=== PATIENT | female | born 1945 | race Caucasian/White ===

== ENCOUNTER 2023-06-16 06:04 | Day surgery (SDC) | payer MEDICARE, BC, SELFPAY ==
[2023-06-16] VITALS (12 sets, daily range): BP systolic 135–186; BP diastolic 76–96; BMI 31.6
[2023-06-16] MEDS: NSS 235 ML IV (06:33)
--- NOTE | 2023-06-16 08:55 | CONSULT.STRU ---
Addendum entered and electronically signed by RADHA Spicer 07/02/23 08:21:
Patient discussed in the shared decision making meeting by the Structural Heart Team. Team feels that the appropriate treatment for her severe, symptomatic is TAVR via a right transfemoral approach utilizing a 26mm S3 valve. Will call to update
patient of discussion and scheduled her TAVR procedure.
Original Note:
Consultation
-
Date/Time Consultation Requested: 06/16/2023 @ 8015
Date/Time Consultation Performed: 06/16/2023 @ 0915
Requesting Provider: Agapito Eli MD
Performing Provider: RADHA Kenny
Reason for Consultation: /TAVR
Patient History
Physicians
Family Physician: Gene Choe DO
Outpatient Manager Of Digital: Madiha Almaguer MD
Primary Manager Of Digital: Madiha Almaguer MD
History of Present Illness
Mrs. Erwin is a very pleasant 77 yof that presents with severe symptomatic aortic stenosis associated with DUEÑAS. Patient states she noticed a progression of her DUEÑAS with minimal exertion beginning in the fall of 2022. 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 She remains active with her horses. However, she states that her DUEÑAS has gotten worse. Her echocardiogram from 06/16/2023 is notable for an aortic valve P/M 74/42, STACI 0.79, DI 0.26, EF 70-75%,
mild AI, mild to moderate MR, RVSP 45. Discussed the pathophysiology and treatment options of including SAVR and TAVR. Explained the evaluation process comprising of CT scan, CT surgical consult, dental clearance, and a heart team discussion.
TAVR booklet, contact information, appointments, and prescriptions given to patient. Allowed for and answered questions at bedside.
Past Medical History
Past Medical History: Arrhythmias (frequent PVCs), Covid-19 (05/17/2023), DUEÑAS, HTN, Hypercholesterolemia, Valvular Disease (aortic stenosis) and Other (Hep. C from a blood transfusion, ascending aorta Dilation (4.[address] scan from 01/05/2023),
osteopenia, hx of palpitatoins)
Past Surgical History
Past Surgical History: Appendectomy, Hysterectomy (DAMON), Orthopedic (bilateral knee replacement) and Tonsilectomy
Dental History
[facility]. Patient has not been to the dentist since before -. Instructed Mrs. Erwin that she will need dental clearance prior to valve replacement. She verbalized understanding. Dental clearance form faxed to dentist.
Family History
Mother: N/A
Father: N/A
Family Medical History: Hypertension
Social History
Alcohol: Occasional
Drug: None
Tobacco: Non-Smoker
Personal:
Living: With Spouse
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
Allergies
Allergy/AdvReac Type Severity Reaction Status Date / Time
nitrofurantoin Allergy Nausea / Verified 06/16/23 06:20
[From Macrobid] Vomiting
Penicillins Allergy Rash Verified 06/16/23 06:20
Home Medications
Medication Instructions Recorded Confirmed Type
aspirin 81 mg tablet 81 mg PO DAILY 06/16/23 06/16/23 History
cefuroxime axetil 500 mg tablet 500 mg PO BID 06/16/23 06/16/23 History
cetirizine 10 mg tablet (Zyrtec) 10 mg PO DAILY 06/16/23 06/16/23 History
fluticasone propionate 50 1 spray intranasal DAILY 06/16/23 06/16/23 History
mcg/actuation nasal
spray,suspension
metoprolol succinate 50 mg 50 mg PO DAILY 06/16/23 06/16/23 History
tablet,extended release 24 hr
STS%
STS %: 2.68
Review of Systems
-
History Source: Patient
General: Reports No Symptoms
HEENT: Reports No Symptoms
Respiratory: Reports SOB and DUEÑAS
Cardiac: Reports Palpitations
Abdomen/GI: Reports No Symptoms
: Reports No Symptoms
Neurological: Reports No Symptoms
Vascular: Reports No Symptoms
Physical Exam
Vital Signs
Temp 98.1 F 06/16/23 06:33
Pulse 66 06/16/23 08:30
Resp Rate 20 06/16/23 06:33
Blood pressure 176/96 06/16/23 08:28
Blood pressure extremity used: Right upper arm 06/16/23 06:33
Position: Sitting 06/16/23 06:33
MAP (cuff-Lucita Monitor) 123 06/16/23 08:28
SaO2 97 06/16/23 08:30
Can the patient verbally communicate their pain? Yes 06/16/23 06:33
Actual Weight 78.2 kg 06/16/23 06:19
Body Mass Index (BMI) 31.6 06/16/23 06:19
Labs
06/02/2023:
HH: 13.2/41.9
Plt: 287K
BUN/Creatinine: 12/0.7
GFR>60
Diagnostic Studies
01/05/2023 Non-contrast Chest CT:
Ascending aortic aneurysm measuring up to 4.4 cm
Otherwise no other significant interval change
03/10/2023 Echo:
EF 70-75%
moderate left LVH w/ septal prominence
normal RV size and systolic function
normal LA vol index (16.2 mL/m2)
aortic valve is tricuspid and calcified. Severe AV stenosis, mild AI,
AoV samreen 4.29. P/M 73.5/41.7, STACI 0.79. DI 0.26
Assuming (R) atrial pressure 8mmHg, estimated RVSP 44.5
Mild to moderate MR
Ascending Aorta is dilated (4.14cm)
Study done in NSR
06/10/2023 EKG: NSR RBBB
06/16/2023 Cardiac Cath:
HEMODYNAMIC FINDINGS (mmHg):
LV(s/d,EDP): Valve not crossed
Ao(s/d,m): 144/84, 108
ANGIOGRAPHIC FINDINGS:
Single-plane Left Ventriculography in SHAW Projection: Valve not crossed.
Coronary Angiography:
Dominance: Right
Left Main: Normal
Left Anterior Descending: The left anterior descending artery is a relatively large caliber vessel that is diffusely calcified throughout its proximal and midportion with nonobstructive moderate luminal irregularities throughout.� All vessels
have normal distal flow.
Left Circumflex: The left circumflex is a extremely large caliber vessel that gives rise to a giant branching obtuse marginal branch that has mild nonobstructive luminal irregularities with normal flow.� The left circumflex is also heavily
calcified in the midportion without stenotic disease.
Right Coronary: The right coronary artery is a heavily calcified vessel within the AV groove.� There is a focal smooth mid 60 to 70% proximal stenosis followed by a irregular 40% stenosis just before the acute margin.� The distal vessel is widely
patent with normal flow and a large caliber posterior descending artery and smaller PLV branch system.
Fluoroscopy Time (min): 4.4
Radiation Dose (mGy): 274
DAP (Gy.cm2): 18
Closure device: None.� A TR band was applied for hemostasis at the right wrist.
Complications: None.
ASSESSMENT:
1: Single-vessel coronary artery disease with diffuse calcification in both left and right coronary circulations.� Given the borderline angiographic significance of the RCA disease, I feel this should be treated medically and plan to proceed with
TAVR evaluation.
CONCLUSIONS and RECOMMENDATIONS:
1: Medical therapy for coronary artery disease.
2: Proceed with TAVR evaluation.
Exam
General: Well Developed, Well Nourished, No Apparent Distress and Comfortable
HEENT: Normocephalic and Moist Mucous Membranes
Neck: Trachea Midline
Respiratory: Clear
Cardiac: Regular Rhythm and Murmur (IV/ JOSE GUADALUPE)
GI: Soft and Non Distended
Rectal: Deferred by Provider
Skin: Warm and Dry
Neuro: Awake, Alert, Oriented and AO x 3
Extremities: Pulses (Strong bilateral)
Psych: Calm
Assessment / Plan
-
Aortic stenosis
Continue TAVR evaluation
Trend creatinine after contrast (Rx given)
TAVR CT scan (06/28)
CT surgical consult (MPT 06/22)
Frailty testing and KCCQ12 at consult
Dental clearance (form faxed)
Continue aspirin
Heart team discussion.
Data Reviewed
-
EKG: Tracing Personally Visualized and interpreted (NSR with RBBB) and Report Reviewed by me
Biomedical Equipment Tech: Report Reviewed by me
Echo: Report Reviewed by me
CT Scan: Report Reviewed by me (non-con chest)
Labs: Labs Reviewed by me
Old Records: Reviewed (Dr. Almaguer's OV)
Total Time Spent with Patient (in minutes): 45
[2023-06-16] MEDS: NSS 1000 IV (09:27)
--- NOTE | 2023-06-16 09:44 | ITS.CL.CATH ---
[employer] - Catheterization
Cardiac Catheterization
Procedure Report:
LEFT HEART CATHETERIZATION
Date of Procedure: June 16, 2023
Procedures performed:
1: Coronary angiography
Primary Care Physician: Dr. Gene Choe
Primary Plasma Table Operator: Dr. Madiha Mason
INDICATION: The patient is a 77-year-old woman with a past medical history significant for hypertension and progressive severe aortic valvular stenosis who has experienced increasing exertional dyspnea over the past 6 months. Echocardiogram
performed on March 08, 2023 showed a mean gradient of 42 mmHg with a valve area of 0.79 cm� and a aortic valve dimensionless index of 0.26 with mild to moderate mitral regurgitation and normal LV size and systolic function. She is referred for
coronary angiography in preparation for aortic valve intervention.
ACCESS: The patient was prepped and draped in usual sterile fashion. A 5 Faroese sheath was placed in the right radial artery using the Seldinger over the wire technique.
HEMODYNAMIC FINDINGS (mmHg):
LV(s/d,EDP): Valve not crossed
Ao(s/d,m): 144/84, 108
ANGIOGRAPHIC FINDINGS:
Single-plane Left Ventriculography in SHAW Projection: Valve not crossed.
Coronary Angiography:
Dominance: Right
Left Main: Normal
Left Anterior Descending: The left anterior descending artery is a relatively large caliber vessel that is diffusely calcified throughout its proximal and midportion with nonobstructive moderate luminal irregularities throughout. All vessels have
normal distal flow.
Left Circumflex: The left circumflex is a extremely large caliber vessel that gives rise to a giant branching obtuse marginal branch that has mild nonobstructive luminal irregularities with normal flow. The left circumflex is also heavily calcified
in the midportion without stenotic disease.
Right Coronary: The right coronary artery is a heavily calcified vessel within the AV groove. There is a focal smooth mid 60 to 70% proximal stenosis followed by a irregular 40% stenosis just before the acute margin. The distal vessel is widely
patent with normal flow and a large caliber posterior descending artery and smaller PLV branch system.
Fluoroscopy Time (min): 4.4
Radiation Dose (mGy): 274
DAP (Gy.cm2): 18
Closure device: None. A TR band was applied for hemostasis at the right wrist.
Complications: None.
ASSESSMENT:
1: Single-vessel coronary artery disease with diffuse calcification in both left and right coronary circulations. Given the borderline angiographic significance of the RCA disease, I feel this should be treated medically and plan to proceed with
TAVR evaluation.
CONCLUSIONS and RECOMMENDATIONS:
1: Medical therapy for coronary artery disease.
2: Proceed with TAVR evaluation.
Chanell Eli M.D.
Copy to: Dr. Gene Choe
== END 2023-06-16 11:12 | disposition home or self-care (01) ==
LOC: CATH 06:04
PROVIDERS: ATTENDING PHYSICIAN Internal Medicine Interventional Cardiology; OTHER PHYSICIAN Internal Medicine Cardiovascular Disease; PRIMARYCARE PHYSICIAN Student in an Organized Health Care Education/Training Program
DX: I25.10 Atherosclerotic heart disease of native coronary artery without angina pectoris (principal); I08.0 Rheumatic disorders of both mitral and aortic valves; R06.09 Other forms of dyspnea; I10 Essential (primary) hypertension; E78.00 Pure hypercholesterolemia, unspecified; Z86.16 Personal history of COVID-19; Z79.82 Long term (current) use of aspirin
CPT/HCPCS: 93454; C1769; C1894; Q9967

== ENCOUNTER → 2023-06-28 09:12 | Outpatient (REF) | payer MEDICARE, BC, SELFPAY | LOC: RAD 09:12 | PROVIDERS: ATTENDING PHYSICIAN Nurse Practitioner Acute Care; FAMILY PHYSICIAN Student in an Organized Health Care Education/Training Program | DX: I35.0 Nonrheumatic aortic (valve) stenosis (principal) | CPT/HCPCS: 74174; 75572; Q9967 ==

== ENCOUNTER 2023-07-22 07:31 | Inpatient (IN) | payer MEDICARE, BC, SELFPAY ==
[2023-07-15 08:58] VITALS: BMI 32.2
[2023-07-15 09:13] LABS: % Basophils 0.9 % (0-2); % Eosinophils 3.8 % (0-6); % Immature Granulocytes 0.2 % (0-0.5); % Lymphocytes 29.8 % (20.5-51.1); % Monocytes 6.6 % (1.7-9.3); % Neutrophils 58.7 % (42.2-75.2); Absolute Basophils 0.1 10^3/uL (0-0.2); Absolute Eosinophils 0.2 10^3/uL (0-0.7); Absolute Lymphocytes 1.9 10^3/uL (1.2-3.4); Absolute Monocytes 0.4 10^3/uL (0.1-0.6); Absolute Neutrophils 3.7 10^3/uL (1.4-6.5); Hemoglobin 13.3 g/dL (12.0-16.0); Mean Corp Hgb Conc. 33.3 g/dL (33.0-37.0); Mean Corpuscular Hgb 28.7 pg (27.0-31.0); Mean Corpuscular Volume 86.4 fL (81.0-99.0); Mean Platelet Volume 8.9 fL (7.4-10.4); Nucleated Red Blood Cells % 0 %; Platelet Count 242 10^3/uL (130-400); Red Blood Cell Count 4.63 10^6/uL (4.20-5.40); Red Cell Dist. Width 13.2 % (11.5-14.5); White Blood Cell Count 6.3 10^3/uL (4.8-10.8)
[2023-07-15 09:23] LABS: APTT 27.3 Sec (23.4-35.0); INR 1.08
[2023-07-15 09:34] LABS: NT-proBNP 285 pg/ml
[2023-07-15 09:59] LABS: ALT (SGPT) 18 U/L (0-35); AST (SGOT) 21 U/L (14-36); Albumin 4.3 g/dl (3.5-5.0); Alkaline Phosphatase 76 U/L (38-126); Blood Urea Nitrogen 16 mg/dl (7-17); Calcium 9.6 mg/dl (8.4-10.2); Carbon Dioxide 27 mmol/L (22-30); Chloride 101 mmol/L (98-107); Estimated Creatinine Clearance 56 ml/min; Glucose 102 mg/dl (70-99); Potassium 4.8 mmol/L (3.5-5.1); Sodium 136 mmol/L (135-145); Total Bilirubin 0.6 mg/dl (0.2-1.3); Total Protein 7.1 g/dl (6.3-8.2); eGFR > 60.00
--- NOTE | 2023-07-15 10:54 | CM ---
CM met w/ patient during PATs for planned TAVR, 07/21.
Pt. reports that she resides w/ spouse in a private, 2 story home w/ 1 ZAIDA. 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 She has RW, SPC at home from her knee surgery but does not use.
Pt. travels to [place] every weekend to their vacation home/to take care of their horses (2). 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
Reviewed pre and post operative routines.
Soap, shower instructions and TAVR booklet provided.
Discussed post op restrictions to include lifting, driving.
Reviewed post op MD appointment, Cardiac Rehab and visit from CT Transitional Care RN/patient agreeable.
Plan for TAVR, 07/21.
Anticipated DC plan is to return to home w/ CT Transitional Care RN.
CM to cont. to follow.
[2023-07-15 11:02] LABS: Urine Albumin Negative (Neg - Trace); Urine Bilirubin Negative (Negative); Urine Character Clear (Clear); Urine Color Yellow; Urine Glucose Negative (Negative); Urine Ketone Negative (Negative); Urine Leukocyte 2+ (Negative); Urine Nitrite Negative (Negative); Urine Occult Blood Negative (Negative); Urine Urobilinogen Negative (Neg - 1+)
[2023-07-15 11:21] LABS: Urine Red Blood Cell 0-2 /HPF (0-2); Urine Yeast Few (Negative)
--- NOTE | 2023-07-15 12:34 | HPS.HSE ---
Family Physician
-
Family Physician: Gene Choe,
Chief Complaint
-
DUEÑAS
History of Present Illness
Mrs. Erwin is a very pleasant 77 yof that presents with severe symptomatic aortic stenosis associated with DUEÑAS. 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 She remains active with her horses. However, she states that her DUEÑAS has gotten worse. Her echocardiogram from 06/16/2023 is notable for an aortic valve P/M 74/42, STACI 0.79, DI 0.26, EF 70-75%,
mild AI, mild to moderate MR, RVSP 45. She has been evaluated by the heart team and recommended for Transfemoral TAVR. TAVR scheduled for 07/22/[address] Lim and Odilon.
Assessed in preadmission testing and reviewed risks of the procedure including stroke, vascular injury, and ppm. She will arrive to the [facility] atrium @ 0730 and take 81 mg aspirin FINANCIAL ADVISOR. Informed Mrs. Erwin she will receive a phone call on Wednesday
07/20 to confirm time and location of arrival. Allowed for and answered questions.
Medical History
Past Medical History
Past Medical History: Reports HTN and Valvular Disease (aortic stenosis)
Additional Past Medical History:
HLD, osteopenia, COVID (05/17/2023), RBBB, cystocele, lumbar spine fx, hepatitis C, migraines, constipation, deviated septum,
Past Surgical History: Reports Appendectomy, Gynocological (hysterectomy), Orthopedic (bilateral TKR) and Tonsilectomy
Social History
Tobacco: Non-smoker
Alcohol: Occasional
Drug: None
Personal:
Living: With Family
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
Family History
Family History: Not pertinent
Allergies / Home Medications
Allergies reflects when Allergies were last updated in [employer].
Home Medications with original date entered in [employer]
Allergy/Medication List:
adhesive, macrobid, PCN
Review of Systems
-
History Source: Patient
A 12 point ROS was completed and negative except as noted: Yes
Respiratory: Reports Cough and Other (DUEÑAS)
Physical Exam
Physical Exam
General: Well Developed and Well Nourished
HEENT: NormoCephalic
Respiratory: Clear
Cardiac: Regular Rhythm and Murmur (III/ JOSE GUADALUPE)
Breast: Deferred by me
GI: Non Tender
Rectal: Deferred by Provider
Genito-urinary: Deferred by me
Musculoskeletal: No Edema
Skin: Warm and Dry
Neuro: Awake, Alert, Oriented and AO x 3
Psych: Calm
Laboratory Results
-
07/15/23 08:46
07/15/23 08:46
Laboratory Results
PT 14.0 Sec (11.4-14.6) 07/15/23 08:46
INR 1.08 07/15/23 08:46
APTT 27.3 Sec (23.4-35.0) 07/15/23 08:46
Total Bilirubin 0.6 mg/dl (0.2-1.3) 07/15/23 08:46
AST 21 U/L (14-36) 07/15/23 08:46
ALT 18 U/L (0-35) 07/15/23 08:46
Alkaline Phosphatase 76 U/L (38-126) 07/15/23 08:46
Data Reviewed
-
Diagnostic Radiology: Report Reviewed by me (CXR)
CT Scan: Report Reviewed by me and Discussed with Physician (discussed TAVR CT scan with the heart team)
Medical Tests (Nuc Med, Echo, EKG etc): Report Reviewed by me and Discussed with Physician (Reviewed echo and cardiac catheterization with the heart team)
Lab Data: Labs Reviewed by me
Old Records: Reviewed
Impression/Plan
-
IMPRESSION/ PLAN: Aortic stenosis
TF TAVR planned for 07/21- 26mm S3 via right TF--Drs. Lim and Odilon
Continue aspirin
POD#06/01 echocardiogram
Cardiac rehab consult.
[2023-07-15 13:15] LABS: Glycohemoglobin (HgbA1c) 5.9 % (4.0-5.6)
[2023-07-22] VITALS (17 sets, daily range): BP systolic 87–169; BP diastolic 57–91; BMI 31.1
--- NOTE | 2023-07-22 08:48 | ITS.CL.TAVR ---
Electric Furnace Operator - TAVR Report
TAVR PRocedure
Procedure Report:
TRANSCATHETER AORTIC VALVE REPLACEMENT
Date of Procedure: July 22, 2023
Referring: Chanell Eli
Primary Care Physician: Dr. Gene Choe
Primary Press Feeder Broomcorn: Dr. Madiha Mason
Operators: Drs. Roxann Lim and Anthony Donald
PROCEDURE PERFORMED:
1. Successful placement of 26 mm Kimble Suzette S3 aortic valve via right common femoral approach.
PREPROCEDURE NYHA CLASS: II
DESCRIPTION OF PROCEDURE: The patient was referred for assessment of severe symptomatic aortic stenosis and following a comprehensive evaluation it was felt that transcatheter aortic valve replacement (TAVR) would be the most appropriate treatment.
Informed consent was obtained prior to the procedure. A 'time-out' was called and the procedural plan was verbally confirmed by anesthesia, surgery, perfusion, and microbiology lab analyst staff.
Arterial and venous access site were obtained in the left common femoral artery and vein using ultrasound guidance and micropuncture technique. 6 Fr. sheaths were inserted.
A 5 Fr. transvenous pacing wire was advanced to the right ventricle where excellent pacing thresholds were obtained.
A 5 Fr. pigtail catheter was then advanced to the proximal ascending aorta / right aortic cusp where angiography was performed in multiple angles to define the co-planar angle that was most appropriate valve deployment (GABONESE 36/ BAG END SEWER 6).
Ultrasound guidance was then used to obtain arterial access in the right common femoral artery and a 4 Fr. micropuncture sheath was inserted. Angiography was performed and the arteriotomy site appeared appropriate for preclosure with two Perclose
devices. An 8 Fr sheath was then inserted back into the common femoral artery over a J-tipped guidewire. An AL1 catheter was positioned in the proximal descending aorta. An Extra Stiff 0.035' J-tip wire was inserted to provide extra-support to
facilitate the Kimble eSheath delivery. The 16 Fr. Kimble eSheath was advanced in the descending thoracic aorta through the right common femoral.
An AL1 catheter was advanced through the Kimble eSheath over a 0.035' J-tip guide wire. The AL1 catheter was positioned just above the aortic valve. A 0.035' Straight tip wire probed the aortic valve and crossed the stenotic leaflets. The AL1
was then advanced to the mid left ventricle. Invasive LV measurement was obtained with mildly elevated at 18 mmHg. An Amplatz Extra-stiff wire with a generous curved tip was then positioned in the left ventricular apex. A 26 mm Kimble Suzette S3
valve was brought to the table and the orientation of the valve on the balloon delivery system was confirmed by all operators. The Suzette S3 valve was advanced through the eSheath and into the proximal descending thoracic aorta. The Suzette S3
valve was centered on the delivery balloon and the entire system was retroflexed as it crossed the aortic arch. The Suzette S3 delivery system was then advanced across the stenotic valve and the 26 mm Suzette S3 valve was deployed during rapid
pacing. The valve deployment was uneventful. Transthoracic echocardiographic images post valve deployment revealed minimal aortic insufficiency with excellent position of the aortic prosthesis.
The Kimble balloon and delivery system were then removed. The Kimble sheath was removed and the Perclose knots were advanced to the arteriotomy site resulting in excellent hemostasis.
Fluoro Time: 9.3 min, Dose: 277.97 mGy, DAP : 31.4 Gy.cm2
CONCLUSIONS:
1. Severe symptomatic aortic stenosis. Successful deployment of a 26 mm Suzette S3 valve with minimal aortic insufficiency post procedure
2. Successful arteriotomy closure with 2 Perclose devices.
3. Mildly elevated LVEDP of 18 mmHg.
Copy to: Chanell Eli, Dr. Gene Choe, Dr. Madiha Mason
Roxann Lim MD, [facility], [facility]
[2023-07-22] MEDS: VANCOCIN 200 IV (09:11)
--- NOTE | 2023-07-22 09:19 | W.CVOR.SURPR ---
CVOR Surgeon Immed Pre Op
-
I have examined this patient prior to performance of the scheduled procedure.
The patient's condition is unchanged from the time of the dictated/written History and
Physical and the patient is able to undergo the scheduled procedure.
--- NOTE | 2023-07-22 10:23 | CM ---
Reviewed chart. Mrs. Erwin is in the operating room. Prior to admission she resides with her spouse in a two story home with one step to enter. Prior to admission she was independent with ambulation and adls. She has a walker and single point
cane at home. She has a prescription plan and uses [facility]. Medical work-up in progress. The discharge plan is to return home with her spouse when medically stable.
[2023-07-22 10:53] LABS: ACT-LR - POC 273 Seconds (116-155)
--- NOTE | 2023-07-22 11:16 | W.IMMPOSTOP ---
Surgical Immed Post Op Note
-
Dictated: [id number]
STRUCTURAL HEART PROCEDURE NOTE: TAVR
Preoperative Dx:
Severe (P/M: 74/42, STACI 0.79)
HTN/HLD
Ascending aortic dilation
RBBB
Hep C
Osteopenia
Migraines
Constipation
Cystocele
Deviated septum
COVID
Postoperative Dx:
Same
Procedures:
1) L LOANS CONSULTANT access w/ tactile, U/S, and fluoroscopic guidance, micropuncture technique, 6Fr sheath
2) Attempted L CFV access w/ inadvertent arterial access w/ micropuncture needle x 2, manual pressure held
3) R LOANS CONSULTANT access w/ tactile, U/S, and fluoroscopic guidance, micropuncture technique, limited angiography x 2, 8Fr dilator placement
4) Perclose placement x 2 into R LOANS CONSULTANT, 8Fr sheath placement
5) L CFV access w/ U/S and fluoroscopic guidance, micropuncture technique, 6Fr sheath placement
6) Placement of temporary TV pacer w/ threshold testing
7) Placement of pigtail in RCC w/ limited aortography & confirmation of co-planar valve deployment angles
8) Placement of Kimble E-sheath via R LOANS CONSULTANT
9) Wire purchase across stenotic AV
10) R TF TAVR w/ placement of 26mm TITO 3
11) Completion aortography
12) Completion TTE (mean gradient 4mmHg, trace AI)
13) Removal of valve delivery system/Kimble E-sheath w/ R LOANS CONSULTANT mgmt w/ perclose sutures x 2; manual pressure
14) Completion R ileofemoral angiography
15) Limited L ileofemoral angiography w/ removal of L LOANS CONSULTANT sheath w/ mgmt w/ 6Fr angioseal; manual pressure
16) Removal of pacing wire and L CFV sheath w/ manual pressure
Receptionist Nurse:
Dr. Roxann Lim
Cardiac Surgeon:
Dr. Anthony Donald
Anesthesia:
MAC & local to B/L groins
Implants:
Perclose sutures x 2
6Fr angioseal x 1
Kimble Lifesciences, 26mm Model [id number], SN [id number]
Complications:
None
Cath Data:
Start: 1014hrs, Deploy: 1054hrs, End: 1113hrs
FT: 9.3min, mGy: 277.97, DAP: 31.4287, Contrast: 87mL
Post-TTE: mean gradient 4mmHg, trace AI
Condition:
Stable/guarded to recovery
--- NOTE | 2023-07-22 12:02 | W.PN.UPDATE ---
Update Note
Progress Note Update
Reviewed Ms. Erwin with the heart team in the preTAVR SDM meeting to confirm a 26 mm S3 via right transfemoral access. Patient will resume aspirin post TAVR. LVEDP 18mmHg. #26mm S3 (serial# [id number]) successfully deployed via right transfemoral
access. Post implant MG 4 mmHg.
--- NOTE | 2023-07-22 13:30 | PTCARENOTE ---
Received pt post TAVR. VSS. Pt denies any chest or groin pain. B/L groin sites clean and intact. Pt c/o back pain from extended bed rest. Meds as ordered.
[2023-07-22] MEDS: STERILE WATER FOR INJECTION 10 ML IV ×2 (13:35)
[2023-07-22] MEDS: TYLENOL 650 MG PO (13:35)
[2023-07-22] MEDS: AZACTAM 2000 MG IV ×2 (13:35)
[2023-07-22] MEDS: TUMS EX (EXTRA STRENGTH) CHEWABLE 2 TABLET PO (21:39)
[2023-07-23 03:07] LABS: Hematocrit 36.1 % (37.0-47.0); Hemoglobin 12.2 g/dL (12.0-16.0); Mean Corp Hgb Conc. 33.8 g/dL (33.0-37.0); Mean Corpuscular Hgb 28.7 pg (27.0-31.0); Mean Corpuscular Volume 84.9 fL (81.0-99.0); Mean Platelet Volume 8.9 fL (7.4-10.4); Platelet Count 169 10^3/uL (130-400); Red Blood Cell Count 4.25 10^6/uL (4.20-5.40); Red Cell Dist. Width 13.2 % (11.5-14.5)
[2023-07-23 03:15] LABS: Blood Urea Nitrogen 15 mg/dl (7-17); Calcium 9.5 mg/dl (8.4-10.2); Carbon Dioxide 26 mmol/L (22-30); Chloride 101 mmol/L (98-107); Estimated Creatinine Clearance 73 ml/min; Glucose 112 mg/dl (70-99); Potassium 4.5 mmol/L (3.5-5.1); Sodium 134 mmol/L (135-145); eGFR > 60.00
[2023-07-23 03:32] VITALS: BP 158/82
[2023-07-23 03:38] VITALS: BMI 31.4
--- NOTE | 2023-07-23 03:59 | PTCARENOTE ---
Patient ambulates self in room w/out difficulty. Pt AAOx3 and neuro WNL. Right groin dressing w/ a small ooze, new dressing applied this AM. B/l groin sites soft and no hematoma noted. Bilateral pedal pulses palpable. Tele remains SR w/ BBBC.
Denies any chest pain. Patient aware of POC, call hylton in reach.
--- NOTE | 2023-07-23 05:52 | W.PN.CT ---
Addendum entered and electronically signed by Anthony Donald MD 07/23/23 08:22:
I saw and examined the patient.
The PA's note was reviewed and I agree with the note.
Comment:
POD#1 s/p TF TAVR
Doing well.
- Echocardiogram today
- Home medications
- ASA only anticoagulation
- D/C planning for likely home later today
Original Note:
Today's Communication / Plan
-
-pod #1
-no issues overnight
-nsr 70s-80s, no gurpreet or pauses overnight
-pre-existing RBBB, new 1st degree AVB (resolved)
-Echo today
-current meds (ASA, Toprol)
-encourage IS, OOB
-possible d/c today
Assessment / Plan
-
- Severe symptomatic - s/p R TF TAVR w/ placement of 26mm TITO 3 on 07/22/23, pod #1
-Post-TTE: mean gradient 4mmHg, trace AI
- HTN/HLD
- Ascending aortic dilation
- Pre-existing RBBB
- Hep C
- Osteopenia
- Migraines
- Constipation
- Cystocele
- Deviated septum
- COVID
- Acute postop transient 1st degree AVB- resolved
Discussed patient care with: Nursing and Care Team
Subjective
Procedure
- s/p R TF TAVR w/ placement of 26mm TITO 3 on 07/22/23
-
Date of Service: July 23, 2023
Objective Data
-
PT 14.0 Sec (11.4-14.6) 07/15/23 08:46
INR 1.08 07/15/23 08:46
APTT 27.3 Sec (23.4-35.0) 03/14/24 08:46
Vital Signs
Vital Signs
Temp Pulse Resp BP Pulse Ox
98.3 F 74 18 132/64 97
07/22/23 22:46 07/23/23 00:00 07/22/23 22:46 07/22/23 22:15 07/22/23 22:46
CT Intake/Output/Weight
07/22/23 07/22/23 07/23/23
06:59 18:59 06:59
Intake Total 1500 / 1500
Balance 1500 / 1500
SaO2: 97
Physical Exam
-
General: Awake and AOx3
Cardiovascular: Regular rate & rhythm, No Murmurs and No Rub
Respiratory: Clear
Incision: Other (groins are cdi, soft, nontender, no hematom b/l)
Extremities: Other (trace edema b/l, 1+ DP b/l)
Data Reviewed
-
Lab Results: Results Reviewed
Medications: Active Meds Reviewed
Chest X-Ray: Report Reviewed and Image Reviewed
ECG: Report Reviewed and Image Reviewed
[2023-07-23 07:24] VITALS: BP 154/80
--- NOTE | 2023-07-23 08:35 | PTCARENOTE ---
on walking rounds, patient sitting up in chair eating breakfast. bilat,. groins intact, distal pulses palpable. Echo coming in room to do echo at bedside.
[2023-07-23] MEDS: VANCOCIN 200 IV (08:55)
[2023-07-23] MEDS: LOW STRENGTH ASPIRIN 81 MG PO (08:55)
[2023-07-23] MEDS: TOPROL XL 50 MG PO (08:55)
[2023-07-23] MEDS: ZYRTEC 10 MG PO (08:55)
--- NOTE | 2023-07-23 09:15 | W.PN.CARDCBS ---
Addendum entered and electronically signed by Michele Austin MD 07/23/23 11:17:
Attending addendum: Patient seen and examined. TAVR images and post TAVR echocardiogram reviewed. Patient was seen and examined independently by me.
Echocardiogram with stable EF and gradients. No significant AI.
Stable for discharge. Follow-up as already been arranged with Dr. Bharathi Mason.
Original Note:
Today's Communication / Plan
-
Postop day 1 from TAVR stable
Echo pending
If echo stable anticipate discharge later this morning
Outpatient follow up has been arranged
Impression / Plan
-
Primary Care Physician: Dr. Gene Choe
Primary Assembly Leader: Dr. Madiha Mason
Impression:
Severe symptomatic aortic stenosis
s/p� R TF TAVR w/ placement of 26mm TITO 3 on ost-TTE: mean gradient 4mmHg, trace AI
HTN
HLD
Ascending aortic dilation
Pre-existing RBBB
Hep C
Osteopenia
Migraines
Constipation
Cystocele
Deviated septum
H/o COVID
Echocardiogram 06/16/2023: EF 70-75%, mild AI, mild to moderate MR, Aortic valve P/M 74/42, STACI 0.79, DI 0.26, RVSP 45
Cardiac catheterization 06/16/2023: LM normal; LAD:diffusely calcified throughout its proximal and midportion with nonobstructive moderate luminal irregularities throughout. LCX:LI; RCA:heavily calcified, mid 60 to 70% proximal stenosis followed by a
irregular 40% stenosis just before the acute margin.
Plan:
-Severe symptomatic aortic stenosis s/p� R TF TAVR w/ placement of 26mm TITO 3
-ost-TTE: mean gradient 4mmHg, trace AI
-Echo 07/23/2023 pending
-Discussed she will need SBE prophylaxis prior to dental visits; has PCN allergy
-Acute postop transient 1st degree AVB- resolved; review of telemetry shows sinus rhythm without arrhythmias or heart block
-Post procedural ECG stable 07/22/2021 shows sinus rhythm with right bundle branch block (chronic) 82 bpm
-Continue aspirin, Toprol
-Anticipate d/c later today if echo stable
HPI:
The patient is a 77-year-old woman with a past medical history significant for hypertension and progressive severe aortic valvular stenosis who has experienced increasing exertional dyspnea over the past 6 months.� Echocardiogram performed on
March 08, 2023 showed a mean gradient of 42 mmHg with a valve area of 0.79 cm� and a aortic valve dimensionless index of 0.26 with mild to moderate mitral regurgitation and normal LV size and systolic function.� Underwent cardiac cath 07/23/2023
which showed single-vessel coronary artery disease with diffuse calcification in both left and right coronary circulations. Medical management was recommended.
Progress Note - Assembly Leader
Subjective
Date of Service: July 23, 2023
Patient seen and examined. Patient sitting up in chair with at side. She reports she is feeling well. She has been able to ambulate around the room without chest pain, shortness of breath, dizziness, lightheadedness. Denies pain at
bilateral groin sites
Objective
Labs:
07/23/23 02:40
07/23/23 02:40
Labs
Hgb 12.2 g/dL (12.0-16.0) 07/23/23 02:40
Hct 36.1 % (37.0-47.0) L 07/23/23 02:40
Plt Count 169 10^3/uL (130-400) 07/23/23 02:40
PT 14.0 Sec (11.4-14.6) 07/15/23 08:46
INR 1.08 07/15/23 08:46
APTT 27.3 Sec (23.4-35.0) 07/15/23 08:46
Sodium 134 mmol/L (135-145) L 07/23/23 02:40
Potassium 4.5 mmol/L (3.5-5.1) 07/23/23 02:40
BUN 15 mg/dl (7-17) 07/23/23 02:40
Creatinine 0.6 mg/dL (0.6-1.0) 07/23/23 02:40
Glucose 112 mg/dl (70-99) H 07/23/23 02:40
Vital Signs and I&O:
Vital Signs
Temp Pulse Resp BP Pulse Ox
97.6 F 86 18 154/80 95
07/23/23 07:24 07/23/23 08:55 07/23/23 07:24 07/23/23 08:55 07/23/23 07:24
Vital Signs
Temp Pulse Resp BP Pulse Ox
97.6 F 86 18 154/80 95
07/23/23 07:24 07/23/23 08:55 07/23/23 07:24 07/23/23 08:55 07/23/23 07:24
Intake & Output
07/21/23 07/22/23 07/23/23 07/24/23
06:59 06:59 06:59 06:59
Intake Total 1979 200 / 200
Balance 1979 200 / 200
Physical Exam
Physical Exam
GEN: No distress, awake, Ox3
HEENT: supple, anicteric, mmm
LUNGS: CTA, no wheezes/rales
CV: Reg, S1/S2, no murmur, rubs or gallops
ABD: soft, BS+, NT/ND
EXT: No edema,, clubbing or cyanosis; bilateral groins C/D/I without infection, hematoma or significant ecchymosis
NEURO: Gross non-focal
SKIN: No rash, warm, dry, pink
[2023-07-23 11:25] VITALS: BP 150/90
--- NOTE | 2023-07-23 11:30 | CM ---
Chart reviewed. Patient is independent of ADLS, lives with her in a [address], [address] [facility], does not use any DME but has a rolling walker and SPC. Plan is for the patient to return home with CT Transitional RN. CM to follow
[2023-07-23 11:31] VITALS: BP 187/87
[2023-07-23 12:00] VITALS: BP 150/90; BP 187/87; PULSE 84; O2SAT 100; O2SAT 98
--- NOTE | 2023-07-23 12:36 | PTCARENOTE ---
D/C instructions given to patient and both verbalizes understanding. INT D/C'd, telemetry D/C'd, personal belongings packed and sent home with patient. D/C to home via wc accompanied by staff.
--- NOTE | 2023-07-23 14:17 | W.DCSUMMARY ---
Discharge Summary
Discharge Data
Date of Admission: 07/22/23
Date of Discharge: 07/23/23
-
Pending Results: No
Hospital Course
Primary care physician: Geen Choe
Outpatient carboy filler: Madiha Almaguer
Inpatient consultants: [facility]
Procedures:
1. Right transfemoral Transcatheter aortic valve replacement (TAVR) with 26mm Kimble S3 valve by Drs. Donald & Raphael
Primary Diagnosis:
1. severe aortic stenosis
2. pre-syncope
3. dyspnea on exertion
Secondary Diagnoses:
1. Hypertension
2. Hyperlipidemia
3. chronic right bundle branch block, stable
4. history of covid infection 05/17/23
5. hepatitis C
6. Osteoarthritis status post left total knee replacement
7. Total abdominal hysterectomy
8. thoracic aortic ectasia
9. osteopenia with history of lumbar spine fracture
10. history of falls
11. coronary artery disease of RCA, asymptomatic
HPI: Patient is a 77-year-old female with known aortic stenosis and complaints of dyspnea on exertion and presyncope. Most recent echo in March 2023 demonstrates severe with peak and mean gradients of 73/41 mmHg respectively with aortic valve
area of 0.8 cm�. LV function is preserved with an EF of 70 to 75%. Cardiac catheterization demonstrated single-vessel coronary disease of the RCA without any anginal symptoms. Patient was therefore referred for TAVR.
Hospital course: Patient was electively admitted on 07/22/2023 where she underwent a successful right transfemoral TAVR with a 26 mm Kimble S3 valve. She was transferred to recovery on no vasoactive drips, postop EKG unchanged which re-demonstrates
chronic right bundle branch block. She remained hemodynamically stable overnight. On postoperative day 1 she remains in sinus rhythm with no events on telemetry, follow-up echo demonstrates a well-seated TAVR with mean gradient of 14 mmHg and no
AI. She is discharged to home with close follow-up with the transitional care nurse from [facility].
Home medication changes: none
Discharge Plan
-
Patient Disposition: Home (Routine Discharge)
Discharge Diagnosis/Procedures: TF TAVR
Condition: Fair
Diet: Low Fat, Low Cholesterol and 2 Gram Sodium
Activity: As tolerated
Driving Restrictions: No driving for 1 week
Bathing Restrictions: OK to Shower
Others Tests: Your 30-day echocardiogram is scheduled for: 08/24/2023 @ 3:00 at [facility] office
Other Services: Cardiac Rehab
Wound Care: Please do not apply lotions,creams or powders to groin areas. Please monitor for increased pain,swelling,reddness or drainage. Notify your doctor if any occur.
Specialty Instructions: Weigh Daily- Call MD for wt gain/loss 3 lbs overnight/5 lbs in 1 week
Activity Restrictions/Additional Instructions:
Please call to make appointments for Phase II Cardiac Rehab:
[facility]:
[address] [place] [address]
[phone]
Referrals:
CT Transitional Care Nurse [Outside] - in one to two days
(
The Cardiothoracic Transitional Care Nurse will call you to set up a visit in 1-2 days.)
Gene Choe, DO [Family Provider] - in four to six weeks (Please make an appointment in four to six weeks. )
Madiha Almaguer MD [Active] - 08/16/23 2:30 pm
Prescriptions:
New
acetaminophen 325 mg Tablet
650 mg PO Q6HPRN PRN (Reason: BRICENO, mild pain, or fever >101F) Qty: 0 0RF
Continued
cetirizine [Zyrtec] 10 mg Tablet
10 mg PO DAILY Qty: 0 0RF
metoprolol succinate 50 mg Tablet Extended Release 24 Hr
50 mg PO DAILY Qty: 0 0RF
aspirin 81 mg Tablet,Chewable
81 mg PO DAILY Qty: 0 0RF
fluticasone propionate 50 mcg/actuation [place],Suspension
1 spray INTRANASAL DAILY Qty: 0 0RF
Discharge Orders:
Discharge Patient (As Directed); Ordered 07/23/23
Ordered By: Char Bullock
Care Plan Goals
Care Plan Goals:
Problem: Readiness for enhanced knowledge related to diagnosis and treatment plan
Goal: Understand your diagnosis and treatment plan needs, including medications if applicable.
Instructions: Know your diagnosis, underlying causes and treatment plan options, including medications if applicable. Consult with your health care team to learn about your diagnosis and treatment plan, including medications if applicable.
Discharge Date and Time
Discharge Date/Time: 07/23/23 12:41
== END 2023-07-23 12:41 | disposition home or self-care (01) | DRG 267 ==
LOC: IVU 07:31
PROVIDERS: Physician Assistant Surgical; ADMITTING PHYSICIAN Thoracic Surgery (Cardiothoracic Vascular Surgery); CONSULT PHYSICIAN Internal Medicine Interventional Cardiology; FAMILY PHYSICIAN Student in an Organized Health Care Education/Training Program
PROC: 02RF38Z Replacement of Aortic Valve with Zooplastic Tissue, Percutaneous Approach (ICD-10-PCS; 2023-07-22)
DX: I35.0 Nonrheumatic aortic (valve) stenosis (principal); Z00.6 Encounter for examination for normal comparison and control in clinical research program; I10 Essential (primary) hypertension; E78.5 Hyperlipidemia, unspecified; I77.810 Thoracic aortic ectasia; I45.10 Unspecified right bundle-branch block; I44.0 Atrioventricular block, first degree; M85.80 Other specified disorders of bone density and structure, unspecified site; B19.20 Unspecified viral hepatitis C without hepatic coma; G43.909 Migraine, unspecified, not intractable, without status migrainosus; K59.00 Constipation, unspecified; Z86.16 Personal history of COVID-19; Z88.0 Allergy status to penicillin
CPT/HCPCS: 93308; 33361; 36415; 71045; 71046; 76937; 80048; 80053; 81003; 81015; 82248; 83036; 83880; 85025; 85027; 85347; 85610; 85730; 86850; 86900; 86901; 87070; 87086; 93005; 93306; 93321; 93325; C1760; C1769; C1894; Q9967